=== PATIENT | male | born 1995 | race Caucasian/White ===

== ENCOUNTER 2021-05-23 14:43 | Outpatient (REF) | payer OTHER, SELFPAY ==
[2021-05-23 15:08] LABS: MANUAL DIFF FLAG NO
[2021-05-23 15:22] LABS: Basophils Percent Auto 0.2 % (0-2); Eosinophils Absolute Auto 0.1 X10*3/uL (0.0-0.4); Eosinophils Percent Auto 0.9 % (0-4); Hematocrit 42.1 % (42.0-52.0); Hemoglobin 14.2 g/dl (14.0-18.0); Imm Gran Abs Auto 0.01 X10*3/uL (0.00-0.03); Imm Gran Pct Auto 0.2 % (0.0-0.4); Lymphocytes Absolute Auto 2.8 X10*3/uL (1.2-4.9); Lymphocytes Percent Auto 41.5 % (20-40); Mean Corpuscular HGB Conc 33.7 g/dl (31.0-36.0); Mean Corpuscular Hemoglobin 29.9 pg (27.0-33.0); Mean Corpuscular Volume 88.6 fL (80.0-98.0); Monocytes Absolute Auto 0.3 X10*3/uL (0.1-1.2); Monocytes Percent Auto 4.1 % (2-11); Neutrophils Absolute Auto 3.5 x10*3/uL (2.0-8.3); Neutrophils Percent Auto 53.1 % (45-73); Platelet Count 184 X10*3/uL (160-400); Red Blood Count 4.75 X10*6/uL (4.60-5.80); Red Cell Distribution Width 11.4 % (11.0-16.0); White Blood Count 6.7 X10*3/uL (4.8-10.8)
[2021-05-23 15:54] LABS: Alanine Aminotransferase 13 U/L (0-40); Albumin Level 4.6 g/dL (3.5-5.0); Alkaline Phosphatase 81 U/L (39-117); Anion Gap 12 (12-20); Aspartate Amino Transferase 19 U/L (5-37); Bilirubin Total 0.5 mg/dL (0.0-1.0); Blood Urea Nitrogen 10 mg/dL (9-16); C Reactive Protein 0.41 mg/dL (< or = 0.50); Calcium 9.9 mg/dL (8.4-10.2); Carbon Dioxide 26 mmol/L (22-29); Chloride 108 mmol/L (96-108); Estimated Glomerular Filt Rate > 60; Glucose Random 87 mg/dL (60-115); Potassium 3.9 mmol/L (3.3-5.1); Sodium 142 mmol/L (135-145); Total Protein 7.3 g/dL (6.5-8.0)
== END 2021-05-23 14:44 | disposition home or self-care (01) ==
LOC: HO.LAB 14:43
PROVIDERS: Visit Provider Internal Medicine
DX: R63.4 Abnormal weight loss (principal); R10.11 Right upper quadrant pain
CPT/HCPCS: 36415; 80053; 85025; 86140

== ENCOUNTER 2021-06-26 13:48 | Outpatient (REF) | payer OTHER, SELFPAY ==
--- NOTE | ~2021-06-26 | US_ITS ---
EXAMINATION: US ABDOMEN COMPLETE CLINICAL INFORMATION: Right upper quadrant pain. COMPARISON: None TECHNIQUE: Real-time imaging of the abdominal viscera. FINDINGS: PANCREAS: Normal. ABDOMINAL AORTA: The proximal, mid, and distal segments are normal in caliber. INFERIOR VENA CAVA: Visualized portions are normal. LIVER: Normal. The liver is normal in size. The liver contour is normal. Parenchymal echogenicity is normal. No focal hepatic lesion. There is no intrahepatic biliary duct dilatation seen. GALLBLADDER: Normal. The gallbladder is physiologically distended without evidence of stones, sludge, polyps, wall thickening or pericholecystic fluid. COMMON BILE DUCT: Normal in caliber measuring 0.14 cm in diameter. RIGHT KIDNEY: Normal. No hydronephrosis. No renal calculi or focal parenchymal lesions. The kidney measures 11.8 cm in maximum dimension. LEFT KIDNEY: Normal. No hydronephrosis. No renal calculi or focal parenchymal lesions. The kidney measures 10.7 cm in maximum dimension. SPLEEN: Normal. The spleen measures 10.5 cm in maximum dimension. FREE FLUID: None. US/US abdomen complete IMPRESSION: Unremarkable complete abdomen ultrasound.
== END 2021-06-26 13:49 | disposition home or self-care (01) ==
LOC: HO.HMGCX 13:48
PROVIDERS: Visit Provider Internal Medicine
DX: R10.11 Right upper quadrant pain (principal)
CPT/HCPCS: 76700

== ENCOUNTER 2024-02-17 09:17 | Outpatient (REF) | payer MEDICAID, SELFPAY ==
--- NOTE | ~2024-02-17 | XR_ITS ---
EXAMINATION: XR ANKLE, LEFT CLINICAL INFORMATION: Left ankle pain. COMPARISON: None available. TECHNIQUE: AP, lateral, and mortise views of the left ankle. FINDINGS: Corticated ossification within the lateral aspect of the tibiotalar joint along the lateral tibial plafond measuring up to 0.9 cm. Findings could represent a loose body. Minimal lucency within the adjacent lateral talar dome which could represent a small osteochondral lesion. The ankle mortise is maintained. No concerning lytic or blastic osseous lesion. Small tibiotalar joint effusion. XR/XR ankle LT min 3V IMPRESSION: 1. Corticated ossification within the lateral aspect of the tibiotalar joint measuring up to 0.9 cm. Findings could represent a loose body. 2. Minimal lucency within the adjacent lateral talar dome which could represent a small osteochondral lesion. 3. Small tibiotalar joint effusion. Electronically signed by: Kevin Bowles MD 02/17/2024 10:55 AM EDT
== END 2024-02-17 09:18 | disposition home or self-care (01) ==
LOC: HO.XRAY 09:17
PROVIDERS: PCP Internal Medicine; Visit Provider Internal Medicine
DX: M25.572 Pain in left ankle and joints of left foot (principal)
CPT/HCPCS: 73610